=== PATIENT | female | born 1985 | race Two or more races ===

== ENCOUNTER → 2018-03-09 | Emergency (ER) | payer OTHER ==
[~2018-03-09] VITALS: Ht 172.7 cm; Wt 90.7 kg
[~2018-03-09] MED LIST: KETO10TA2 PO; SKELAXIN800 MG PO
== END | disposition home or self-care (01) ==
LOC: ER 23:30
DX: M54.5 Low back pain (principal)

== ENCOUNTER 2018-06-18 18:20 | Emergency (ER) | payer OTHER ==
[~2018-06-18] VITALS: Ht 172.7 cm; Wt 93.0 kg
== END 2018-06-18 22:24 | disposition home or self-care (01) ==
LOC: ER 18:20
DX: S40.012A Contusion of left shoulder, initial encounter (principal); S40.011A Contusion of right shoulder, initial encounter; S70.02XA Contusion of left hip, initial encounter; S30.0XXA Contusion of lower back and pelvis, initial encounter; S10.83XA Contusion of other specified part of neck, initial encounter; V49.9XXA Car occupant (driver) (passenger) injured in unspecified traffic accident, initial encounter; Y93.89 Activity, other specified; Y92.488 Other paved roadways as the place of occurrence of the external cause; Y99.8 Other external cause status

== ENCOUNTER 2019-04-18 10:31 | Emergency (ER) | payer OTHER ==
[~2019-04-18] VITALS: Ht 172.7 cm; Wt 102.1 kg
== END 2019-04-18 16:45 | disposition home or self-care (01) ==
LOC: ER 10:31
DX: K63.89 Other specified diseases of intestine (principal)

== ENCOUNTER 2023-10-01 22:21 | Emergency (ER) | payer OTHER ==
[~2023-10-01] VITALS: Ht 172.7 cm; Wt 99.8 kg
[2023-10-02 01:46] LABS: HEMOGLOBIN 16.1 g/dL (13-16.00); MEAN CELL VOLUME 80.2 fL (80.0-100.00); MEAN CORPUSCULAR HEMOGLOBIN 28.1 pg (27.00-32.0); MEAN CORPUSCULAR HGB CONC 35.1 g/dl (32.0-36.0); PLATELET COUNT 287 K/uL (150-450); RED BLOOD COUNT 5.74 M/uL (4.00-6.00); RED CELL DISTRIBUTION WIDTH 13.9 % (11.5-14.5)
[2023-10-02 02:06] LABS: CALCIUM 9.2 mg/dL (8.5-10.1); CREATININE SERUM 1.07 mg/dL (0.70-1.30); GFR 78.64; POTASSIUM 3.94 mEq/L (3.5-5.1)
[2023-10-02] MEDS ORDERED: KETO10TA2 PO (05:09)
== END 2023-10-02 05:14 ==
LOC: ER 22:21
PROVIDERS: General Practice
DX: R07.89 Other chest pain (principal); R53.81 Other malaise

== ENCOUNTER 2023-11-13 00:30 | Emergency (ER) | payer OTHER ==
[~2023-11-13] VITALS: Ht 172.7 cm; Wt 102.1 kg
[2023-11-13] MEDS ORDERED: PEPCID40 MG PO (03:14)
[2023-11-13] MEDS ORDERED: BENADRYL25 MG PO (03:14)
[2023-11-13] MEDS ORDERED: MEDROL8 MG PO (03:14)
== END 2023-11-13 03:21 ==
LOC: ER 00:31
DX: R21 Rash and other nonspecific skin eruption (principal); L29.8 Other pruritus; T78.40XA Allergy, unspecified, initial encounter

== ENCOUNTER 2024-06-29 21:59 | Emergency (ER) | payer OTHER ==
[~2024-06-29] VITALS: Ht 172.7 cm; Wt 102.1 kg
[~2024-06-29 21:59] MED LIST changes: +BENADRYL25 MG PO; +MEDROL8 MG PO; +PEPCID40 MG PO
[2024-06-30] MEDS ORDERED: TETANUS & DIPHTHERIA TOX,ADULT 0.5 ML VIAL IM STA (01:13)
[2024-06-30] MEDS ORDERED: KETOROLAC TROMETHAMINE 10 MG TABLET PO STA (01:14)
[2024-06-30] MEDS ORDERED: KETOROLAC TROMETHAMINE 10 MG TABLET PO ONE (01:23)
[2024-06-30] MEDS ORDERED: TETANUS DIPHTHERIA TOX. ADSOR 5 ML VIAL IM ONE (01:23)
[2024-06-30] MEDS ORDERED: CEPHALEXIN500 MG PO (01:38)
== END 2024-06-30 01:43 ==
LOC: ER 22:01
DX: S91.331A Puncture wound without foreign body, right foot, initial encounter (principal); W45.0XXA Nail entering through skin, initial encounter; Y93.89 Activity, other specified; Y92.89 Other specified places as the place of occurrence of the external cause